=== PATIENT | female | born 1970 | race Caucasian/White ===

== ENCOUNTER 2017-03-31 10:55 | Outpatient (CLI) | payer OTHER ==
--- NOTE | 2017-03-31 13:42 | MRI Report ---
EXAM: LEFT KNEE MRI WITHOUT CONTRAST EXAM DATE: 03/31/2017 11:49 AM. CLINICAL HISTORY: KNEE PAIN.LEFT. COMPARISON: None. TECHNIQUE: Multiplanar, multisequence T1-weighted and fluid-sensitive sequences of the knee without c ontrast. Other: None. FINDINGS: Cruciate ligaments: Anterior and posterior cruciate ligaments appear intact. Medial meniscus: Intact. No tear is identified. Lateral meniscus: Intact. No tear is identified. Collateral ligaments: The medial and fibular collateral ligaments appear intact. Bones and articular surfaces: Slight degree of cartilage thinning in the medial compartment. Some het erogenous signal within the patellar articular cartilage with minimal surface irregularity. No signif icant cartilage fissuring. No significant articular cartilage defects. Extensor mechanism: The patellar tendon and quadriceps insertion appear intact. Miscellaneous: Small lobulated cyst associated with the popliteus musculotendinous junction approxima tely 0.4 0.4 x 1.8 cm. IMPRESSION: 1. Minimal patellar chondromalacia. 2. The menisci, cruciate and collateral ligaments appear intact. [facility] MUSCULOSKELETAL RADIOLOGY SECTION Referring Provider Line: [phone] SITE ID: [id number]
== END 2017-03-31 10:56 | disposition home or self-care (01) ==
LOC: DI 10:55
PROVIDERS: ATTEND Family Medicine
DX: M22.42 Chondromalacia patellae, left knee (principal)

== ENCOUNTER 2017-11-16 14:15 | Outpatient (CLI) | payer OTHER ==
[2017-11-16 19:12] LABS: BASOPHILS % (AUTO) 0.8 %; EOSINOPHILS # (AUTO) 0.1 10^3/uL (0.0-0.7); EOSINOPHILS % (AUTO) 1.8 %; HGB - HEMOGLOBIN 12.4 g/dL (12.0-16.0); LYMPHOCYTES # (AUTO) 1.5 10^3/uL (1.5-3.5); LYMPHOCYTES % (AUTO) 31.8 %; MEAN CORPUSCULAR HEMOGLOBIN 30.5 pg (27.0-31.0); MEAN CORPUSCULAR VOLUME 92.3 fL (81.0-99.0); MEAN PLATELET VOLUME 8.1 fL (7.9-10.8); MONOCYTES # (AUTO) 0.4 10^3/uL (0.0-1.0); MONOCYTES % (AUTO) 7.9 %; NEUTROPHILS # (AUTO) 2.7 10^3/uL (1.5-6.6); NEUTROPHILS % (AUTO) 57.7 %; PLT - PLATELET COUNT 276 10^3/uL (130-450); RED BLOOD COUNT 4.08 10^6/uL (4.20-5.40); RED CELL DISTRIBUTION WIDTH 12.7 % (12.0-15.0); WHITE BLOOD COUNT 4.7 x10^3/uL (4.8-10.8)
[2017-11-16 19:31] LABS: ALBUMIN 4.4 g/dL (3.2-5.5); ALBUMIN/GLOBULIN RATIO 1.8 (1.0-2.2); ALKALINE PHOSPHATASE 45 IU/L (42-121); ALT ALANINE AMINOTRANSFERASE 13 IU/L (10-60); AST ASPARTATE AMINOTRANSFERASE 16 IU/L (10-42); BILIRUBIN,TOTAL 0.2 mg/dL (0.2-1.0); BUN - BLOOD UREA NITROGEN 8 mg/dL (6-20); CALCIUM 8.7 mg/dL (8.5-10.3); CARBON DIOXIDE - CO2 30 mmol/L (21-32); CHLORIDE 103 mmol/L (101-111); CREATININE 0.6 mg/dL (0.4-1.0); GFR - MDRD 107 (>89); GLUCOSE 103 mg/dL (70-100); SODIUM 135 mmol/L (135-145); TOTAL PROTEIN 6.8 g/dL (6.7-8.2)
[2017-11-16 20:05] LABS: CRP - C-REACTIVE PROTEIN < 1.0 mg/dL (0-1.0)
== END 2017-11-16 14:16 | disposition home or self-care (01) ==
LOC: LAB.WCP 14:15
PROVIDERS: ATTEND Physician Assistant Medical
DX: R19.7 Diarrhea, unspecified (principal)
CPT/HCPCS: 36415; 80053; 85025; 85651; 86140

== ENCOUNTER 2018-04-25 08:00 | Outpatient (CLI) | payer OTHER ==
[2018-04-25 12:34] LABS: BASOPHILS % (AUTO) 0.7 %; EOSINOPHILS # (AUTO) 0.1 10^3/uL (0.0-0.7); EOSINOPHILS % (AUTO) 2.5 %; HGB - HEMOGLOBIN 12.3 g/dL (12.0-16.0); LYMPHOCYTES % (AUTO) 41.8 %; MEAN CORPUSCULAR HEMOGLOBIN 31.4 pg (27.0-31.0); MEAN CORPUSCULAR HGB CONC 33.7 g/dL (32.0-36.0); MEAN CORPUSCULAR VOLUME 93.3 fL (81.0-99.0); MEAN PLATELET VOLUME 7.9 fL (7.9-10.8); MONOCYTES # (AUTO) 0.3 10^3/uL (0.0-1.0); MONOCYTES % (AUTO) 7.2 %; NEUTROPHILS # (AUTO) 2.3 10^3/uL (1.5-6.6); NEUTROPHILS % (AUTO) 47.8 %; PLT - PLATELET COUNT 278 10^3/uL (130-450); RED CELL DISTRIBUTION WIDTH 12.9 % (12.0-15.0); WHITE BLOOD COUNT 4.8 x10^3/uL (4.8-10.8)
[2018-04-25 12:47] LABS: ALBUMIN 3.9 g/dL (3.2-5.5); ALBUMIN/GLOBULIN RATIO 1.3 (1.0-2.2); ALKALINE PHOSPHATASE 47 IU/L (42-121); ALT ALANINE AMINOTRANSFERASE 15 IU/L (10-60); AST ASPARTATE AMINOTRANSFERASE 22 IU/L (10-42); BILIRUBIN,TOTAL 0.5 mg/dL (0.2-1.0); BUN - BLOOD UREA NITROGEN 10 mg/dL (6-20); CARBON DIOXIDE - CO2 25 mmol/L (21-32); CHLORIDE 105 mmol/L (101-111); CHOL/HDL RATIO 2.3 (<4.4); CHOLESTEROL 186 mg/dL; CREATININE 0.7 mg/dL (0.4-1.0); GFR - MDRD 90 (>89); GLUCOSE 89 mg/dL (70-100); HDL CHOLESTEROL 80 mg/dL; LDL CHOLESTEROL,CALCULATED 88 mg/dL; LDL/HDL RATIO 1.1 (<4.4); SODIUM 138 mmol/L (135-145); VLDL CHOLESTEROL 18 mg/dL
== END 2018-04-25 08:01 ==
LOC: LAB.WCP 08:00
PROVIDERS: ATTEND Physician Assistant Medical
DX: Z00.00 Encounter for general adult medical examination without abnormal findings (principal)
CPT/HCPCS: 36415; 80053; 80061; 83721; 84443; 85025

== ENCOUNTER 2018-04-27 13:41 | Outpatient (CLI) | payer OTHER ==
--- NOTE | 2018-04-30 13:17 | Mammography Report ---
Procedure Date: 04/27/2018 Accession Number: [id number] / [id number] Procedure: MGN - Screening Mammo Dig Bilat CPT Code: FULL RESULT: EXAM: Screening Mammo Dig Bilat DATE: 04/27/2018 2:09 PM CLINICAL HISTORY: 47-year-old with history of benign biopsy for screening TECHNIQUE: Bilateral CC and MLO views were obtained. COMPARISON: 07/07/2016, 06/24/2015, 02/21/2014, 01/22/2013, 10/21/2011 FINDINGS: The breasts demonstrate heterogeneously dense fibroglandular parenchyma bilaterally. Punctate, typically benign calcifications are present. No suspicious masses, clustered microcalcifications, or regions of architectural distortion are identified. IMPRESSION: Benign findings RECOMMENDATION: Routine annual screening unless otherwise clinically indicated. BIRADS CATEGORY 2: Benign findings STANDARD QUALIFYING STATEMENTS: 1. This examination was reviewed with the aid of Computer-Aided Detection (CAD). 2. A negative or benign imaging report should not delay biopsy if clinically suspicious findings are present. Consider surgical consultation if warrented. More than 5% of cancers are not identified by imaging. 3. Dense breasts may obscure an underlying neoplasm.
== END 2018-04-27 13:42 | disposition home or self-care (01) ==
LOC: DI.N 13:41
PROVIDERS: ATTEND Physician Assistant Medical
DX: Z12.31 Encounter for screening mammogram for malignant neoplasm of breast (principal)
CPT/HCPCS: 77067

== ENCOUNTER 2019-08-20 10:07 | Outpatient (CLI) | payer OTHER ==
[2019-08-20 13:08] LABS: BASOPHILS # (AUTO) 0.1 10^3/uL (0.0-0.1); BASOPHILS % (AUTO) 1.2 %; EOSINOPHILS # (AUTO) 0.1 10^3/uL (0.0-0.7); EOSINOPHILS % (AUTO) 1.8 %; HGB - HEMOGLOBIN 12.2 g/dL (12.0-16.0); LYMPHOCYTES # (AUTO) 1.8 10^3/uL (1.5-3.5); LYMPHOCYTES % (AUTO) 36.2 %; MEAN CORPUSCULAR HGB CONC 31.4 g/dL (32.0-36.0); MEAN CORPUSCULAR VOLUME 95.6 fL (81.0-99.0); MONOCYTES # (AUTO) 0.4 10^3/uL (0.0-1.0); MONOCYTES % (AUTO) 8.5 %; NEUTROPHILS # (AUTO) 2.6 10^3/uL (1.5-6.6); NEUTROPHILS % (AUTO) 51.9 %; PLT - PLATELET COUNT 309 10^3/uL (130-450); RED BLOOD COUNT 4.06 10^6/uL (4.20-5.40); RED CELL DISTRIBUTION WIDTH 12.3 % (12.0-15.0)
[2019-08-20 13:31] LABS: CALCIUM 9.1 mg/dL (8.5-10.3); CREATININE 0.7 mg/dL (0.4-1.0)
[2019-08-20 14:00] LABS: FOLATE 9.08 ng/mL (5.90 - >24.8)
== END 2019-08-20 23:59 | disposition home or self-care (01) ==
LOC: LAB.WCP 10:07
PROVIDERS: ATTEND Physician Assistant Medical
DX: R26.9 Unspecified abnormalities of gait and mobility (principal)
CPT/HCPCS: 36415; 80048; 82607; 82746; 84443; 85025

== ENCOUNTER 2019-08-31 12:13 | Outpatient (CLI) | payer OTHER ==
[~2019-08-31 12:13] MED LIST: GADOBUTROL 10 MMOL/10 ML VIAL ONE
[2019-08-31] MEDS ORDERED: GADOBUTROL 10 MMOL/10 ML VIAL IVP ONE (13:06)
--- NOTE | 2019-08-31 15:50 | MRI Report ---
Reason: SLURRED SPEECH, GAIT DISTURBANCE Procedure Date: 08/31/2019 Accession Number: [id number] / [id number] Procedure: MRI - Brain W/WO CPT Code: FULL RESULT: EXAM: MRI BRAIN WITH AND WITHOUT CONTRAST COMPARISON: None. CLINICAL HISTORY: Slurred speech, gait disturbance. GFR: Normal. : No. Priors: Nothing relevant. IV CONTRAST: Gadavist 10 mL. TECHNIQUE: Multiplanar multisequence imaging is performed through the head with and without gadolinium based contrast . FINDINGS: Diffusion-weighted imaging shows no acute infarct. Gradient sequence shows no evident prior parenchymal hemorrhage. T2 FLAIR imaging shows minimal white matter T2 prolongation, no masses. Ventricular size is normal. T2 spin-echo imaging shows no posterior fossa masses. No prior posterior fossa infarcts. No abnormal FLAIR signal in the vertebral arteries. No abnormal elevated T1 signal in the brain parenchyma. No developmental anomalies. Postcontrast T1 three-dimensional spoiled gradient sequence shows no evident abnormal parenchymal enhancement. Limited evaluation of the dural venous sinuses and deep venous structures is unremarkable. Visualized orbits, paranasal sinuses and mastoids are unremarkable. No calvarial signal abnormality. IMPRESSION: No acute infarct, mass, or other discrete acute parenchymal process identified. Brain is relatively normal.
== END 2019-08-31 12:14 | disposition home or self-care (01) ==
LOC: DI 12:13
PROVIDERS: ATTEND Physician Assistant Medical
DX: R47.81 Slurred speech (principal); R26.9 Unspecified abnormalities of gait and mobility
CPT/HCPCS: 70553; A9585

== ENCOUNTER 2020-07-27 08:00 | Outpatient (CLI) | payer OTHER ==
--- NOTE | 2020-07-27 16:08 | XRAY Report ---
PROCEDURE: Hip BILAT INDICATIONS: TROCHANTERIC BURSITIS TECHNIQUE: Single view of the pelvis and lateral views of each hip acquired. COMPARISON: None. FINDINGS: Bones: No fractures or dislocations. There is mild bony prominence of the femoral head-neck junctio n bilaterally. There is minimal axial joint space narrowing in the hips bilaterally. No suspicious [place] lesions. The visualized pelvic ring appears intact. Soft tissues: No suspicious soft tissue calcifications or masses. IMPRESSION: 1. Mild bony prominence of the femoral head-neck junction bilaterally. 2. Minimal axial joint space narrowing bilaterally. Reviewed by: Jaron Chaidez MD on 07/27/2020 4:06 PM PDT Approved by: Jaron Chaidez MD on 07/27/2020 4:06 PM PDT Station ID: [id number]
== END 2020-07-27 23:59 | disposition home or self-care (01) ==
LOC: DI.WCP 08:00
PROVIDERS: ATTEND Physician Assistant Medical
DX: M70.62 Trochanteric bursitis, left hip (principal); M70.61 Trochanteric bursitis, right hip
CPT/HCPCS: 73521

== ENCOUNTER 2020-08-07 16:39 | Outpatient (CLI) | payer OTHER ==
--- NOTE | 2020-08-10 15:42 | MRI Report ---
PROCEDURE: Lumbar Spine W/O INDICATIONS: LEFT SCIATICA TECHNIQUE: Noncontrast sagittal T1 spin echo and T2 fast echo, sagittal STIR, axial T1 and T2 fast spin echo thr ough the lumbar spine. In cases with scoliosis, additional coronal T2 fast spin echo may be performe d. COMPARISON: None. FINDINGS: Image quality: Excellent. Alignment and Curvature: There is normal bony alignment. Bone Marrow: Marrow is of normal overall signal. No acute vertebral body compression fractures. Spinal Cord: Conus medullaris terminates at the level. Visualized cord demonstrates normal sign al and size. Paraspinous Soft Tissues: No paravertebral masses. T12-L1: Normal in appearance. L1-L2: Normal in appearance. L2-L3: Normal in appearance. L3-L4: Normal in appearance except for mild facet osteoarthritis. L4-L5: Normal in appearance except for mild to moderate facet osteoarthritis but without spinal or foraminal stenosis.. L5-S1: There is a minimal degree of disc desiccation and disc height reduction, and moderate facet osteoarthritis without significant foraminal stenosis. No spinal stenosis found.. IMPRESSION: A disc herniation is not seen. The degenerative changes along the lumbosacral spine are quite mild, comprised of a slight degree low lumbosacral spine degenerative disc height reduction and desiccation at L5-S1, and mild but progressively more prominent facet osteoarthritis from L3 through S1. The facet hyperostosis present at L5-S1 produces a slight degree of narrowing of the neural fora men bilaterally symmetric, without nerve root impingement. A definite source of left-sided asymmetric sciatica is not found. Reviewed by: Dwight Mcqueen MD on 08/10/2020 3:41 PM PDT Approved by: Dwight Mcqueen MD on 08/10/2020 3:41 PM PDT Station ID: [id number]
== END 2020-08-07 16:40 | disposition home or self-care (01) ==
LOC: DI 16:39
PROVIDERS: ATTEND Physician Assistant Medical
DX: M47.817 Spondylosis without myelopathy or radiculopathy, lumbosacral region (principal); M54.32 Sciatica, left side
CPT/HCPCS: 72148

== ENCOUNTER 2020-10-09 07:00 | Outpatient (CLI) | payer OTHER | END 2020-10-09 23:59 | disposition home or self-care (01) | LOC: COV 07:00 | PROVIDERS: ATTEND Family Medicine | DX: Z20.828 Contact with and (suspected) exposure to other viral communicable diseases (principal) ==

== ENCOUNTER 2021-06-23 08:00 | Outpatient (CLI) | payer OTHER ==
[2021-06-23 11:43] LABS: BASOPHILS # (AUTO) 0.1 10^3/uL (0.0-0.1); EOSINOPHILS # (AUTO) 0.1 10^3/uL (0.0-0.7); EOSINOPHILS % (AUTO) 2.4 %; HGB - HEMOGLOBIN 12.1 g/dL (12.0-16.0); LYMPHOCYTES % (AUTO) 41.2 %; MEAN CORPUSCULAR HEMOGLOBIN 30.6 pg (27.0-31.0); MEAN CORPUSCULAR HGB CONC 31.8 g/dL (32.0-36.0); MEAN PLATELET VOLUME 9.9 fL (7.9-10.8); MONOCYTES # (AUTO) 0.4 10^3/uL (0.0-1.0); MONOCYTES % (AUTO) 7.7 %; NEUTROPHILS # (AUTO) 2.3 10^3/uL (1.5-6.6); NEUTROPHILS % (AUTO) 47.5 %; PLT - PLATELET COUNT 293 10^3/uL (130-450); RED BLOOD COUNT 3.96 10^6/uL (4.20-5.40); RED CELL DISTRIBUTION WIDTH 11.7 % (12.0-15.0); WHITE BLOOD COUNT 4.9 x10^3/uL (4.8-10.8)
[2021-06-23 12:39] LABS: THYROID STIMULATING HORMONE 2.44 uIU/mL (0.34-5.60)
[2021-06-23 12:43] LABS: ALBUMIN 4.6 g/dL (3.2-5.5); ALBUMIN/GLOBULIN RATIO 1.8 (1.0-2.2); ALKALINE PHOSPHATASE 63 IU/L (42-121); ALT ALANINE AMINOTRANSFERASE 13 IU/L (10-60); AST ASPARTATE AMINOTRANSFERASE 17 IU/L (10-42); BILIRUBIN,TOTAL 0.6 mg/dL (0.2-1.0); BUN - BLOOD UREA NITROGEN 9 mg/dL (6-20); CALCIUM 9.4 mg/dL (8.5-10.3); CARBON DIOXIDE - CO2 29 mmol/L (21-32); CHLORIDE 104 mmol/L (101-111); CHOLESTEROL 257 mg/dL; CREATININE 0.7 mg/dL (0.4-1.0); GFR - MDRD 89 (>89); GLUCOSE 90 mg/dL (70-100); HDL CHOLESTEROL 85 mg/dL; LDL CHOLESTEROL,CALCULATED 155 mg/dL; LDL/HDL RATIO 1.8 (<4.4); POTASSIUM 4.1 mmol/L (3.5-5.0); SODIUM 142 mmol/L (135-145); TOTAL PROTEIN 7.2 g/dL (6.7-8.2); TRIGLYCERIDES 84 mg/dL; VLDL CHOLESTEROL 17 mg/dL
== END 2021-06-23 23:59 | disposition home or self-care (01) ==
LOC: LAB.WCP 08:00
PROVIDERS: ATTEND Physician Assistant Medical
DX: Z00.00 Encounter for general adult medical examination without abnormal findings (principal); E78.5 Hyperlipidemia, unspecified; E61.1 Iron deficiency
CPT/HCPCS: 36415; 80053; 80061; 83721; 84443; 85025

== ENCOUNTER 2022-08-08 11:11 | Outpatient (CLI) | payer OTHER ==
[2022-08-08 18:27] LABS: BASOPHILS # (AUTO) 0.1 10^3/uL (0.0-0.1); BASOPHILS % (AUTO) 0.8 %; EOSINOPHILS # (AUTO) 0.1 10^3/uL (0.0-0.7); EOSINOPHILS % (AUTO) 0.9 %; HCT - HEMATOCRIT 40.1 % (37.0-47.0); HGB - HEMOGLOBIN 12.8 g/dL (12.0-16.0); LYMPHOCYTES # (AUTO) 2.1 10^3/uL (1.5-3.5); LYMPHOCYTES % (AUTO) 28.7 %; MEAN CORPUSCULAR HEMOGLOBIN 30.7 pg (27.0-31.0); MEAN CORPUSCULAR HGB CONC 31.9 g/dL (32.0-36.0); MEAN CORPUSCULAR VOLUME 96.2 fL (81.0-99.0); MEAN PLATELET VOLUME 9.8 fL (7.9-10.8); MONOCYTES # (AUTO) 0.6 10^3/uL (0.0-1.0); MONOCYTES % (AUTO) 7.4 %; NEUTROPHILS # (AUTO) 4.6 10^3/uL (1.5-6.6); NEUTROPHILS % (AUTO) 61.8 %; PLT - PLATELET COUNT 332 10^3/uL (130-450); RED BLOOD COUNT 4.17 10^6/uL (4.20-5.40); RED CELL DISTRIBUTION WIDTH 12.9 % (12.0-15.0); WHITE BLOOD COUNT 7.4 x10^3/uL (4.8-10.8)
[2022-08-08 18:30] LABS: THYROID STIMULATING HORMONE 1.74 uIU/mL (0.34-5.60)
[2022-08-08 18:45] LABS: ALBUMIN 4.3 g/dL (3.2-5.5); ALBUMIN/GLOBULIN RATIO 1.5 (1.0-2.2); ALKALINE PHOSPHATASE 53 IU/L (42-121); ALT ALANINE AMINOTRANSFERASE 18 IU/L (10-60); AST ASPARTATE AMINOTRANSFERASE 19 IU/L (10-42); BILIRUBIN,TOTAL 0.5 mg/dL (0.2-1.0); BUN - BLOOD UREA NITROGEN 13 mg/dL (6-20); CALCIUM 9.3 mg/dL (8.5-10.3); CARBON DIOXIDE - CO2 29 mmol/L (21-32); CHLORIDE 101 mmol/L (101-111); CHOL/HDL RATIO 2.8 (<4.4); CHOLESTEROL 262 mg/dL; CREATININE 0.8 mg/dL (0.4-1.0); GFR - MDRD 76 (>89); GLUCOSE 89 mg/dL (70-100); HDL CHOLESTEROL 94 mg/dL; LDL CHOLESTEROL,CALCULATED 156 mg/dL; LDL/HDL RATIO 1.7 (<4.4); POTASSIUM 4.2 mmol/L (3.5-5.0); SODIUM 138 mmol/L (135-145); TOTAL PROTEIN 7.1 g/dL (6.7-8.2); TRIGLYCERIDES 61 mg/dL; VLDL CHOLESTEROL 12 mg/dL
== END 2022-08-08 11:12 | disposition home or self-care (01) ==
LOC: LAB.N 11:11
PROVIDERS: ATTEND Physician Assistant Medical
DX: Z00.00 Encounter for general adult medical examination without abnormal findings (principal); E78.5 Hyperlipidemia, unspecified
CPT/HCPCS: 36415; 80053; 80061; 83721; 84443; 85025

== ENCOUNTER 2022-10-13 06:27 | Day surgery (SDC) | payer OTHER ==
[2022-10-13] MEDS ORDERED: LACTATED RINGERS 1,000 ML IV ONE (06:33)
[2022-10-13] MEDS ORDERED: ONDANSETRON 4 MG/2 ML VIAL ONE (06:53)
[2022-10-13] MEDS ORDERED: PROPOFOL 500 MG/50 ML 500 MG/50 ML VIAL ONE (07:03)
--- NOTE | 2022-10-13 07:06 | ANESTHESIA ---
Pre-Anesthesia VS, & Labs - Diagnosis screening colonoscopy - Procedure colonoscopy Vital Signs: Temp Pulse Resp BP Pulse Ox O2 Flow Rate 36 C L 80 16 146/92 H 97 10/13/22 06:38 10/13/22 06:38 10/13/22 06:38 10/13/22 06:38 10/13/22 06:38 Height: 5 ft 2 in Weight (kg): 58 kg Body Mass Index: 23.3 BMI Classification: Normal - NPO >8 hours - Is Patient ?: Yes Home Medications and Allergies Home Medications: Ambulatory Orders PARoxetine [Paxil] 10 mg PO DAILY 10/12/22 PARoxetine [Paxil] 10 mg PO DAILY 10/12/22 Anes History & Medical History - Anesthetic History Anesthesia Complications: reports: No previous complications - Medical History Cardiovascular: reports: None Pulmonary: reports: None Gastrointestinal: reports: None Urinary: reports: None Musculoskeletal: reports: None Endocrine/Autoimmune: reports: None Skin: reports: None - Surgical History General: reports: Colonoscopy Exam General: Alert, Oriented x3 Dental: WNL Neck Mobility: Normal Mallampati classification: I Thyromental Distance: greater than 6 cm Respiratory: Lungs clear Cardiovascular: Regular rate Plan Anesthesia Type: Total IV Consent for Procedure(s) Verified and Reviewed: Yes Code Status: Attempt Resuscitation ASA classification: 2-Mild systemic disease Is this case an emergency?: No
[2022-10-13] MEDS ORDERED: ONDANSETRON 4 MG/2 ML VIAL IVP PRN (07:07)
[2022-10-13] MEDS ORDERED: LIDOCAINE-MPF 2% 5 ML VIAL ONE (07:28)
[2022-10-13] MEDS ORDERED: KETOROLAC 30 MG/ML VIAL ONE (07:29)
[2022-10-13] MEDS ORDERED: LACTATED RINGERS 500 ML IV ONE (08:15)
[2022-10-13 08:47] VITALS: BP 109/68
--- NOTE | 2022-10-13 10:34 | ANESTHESIA POST OP EVALUATION ---
Anesthesia Post Eval - Post Anesthesia Eval Vitals: Last Vital Signs Temp 36.2 C L 10/13/22 08:47 Pulse 68 10/13/22 08:47 Resp 16 10/13/22 08:47 BP 109/68 10/13/22 08:47 Pulse Ox 98 10/13/22 08:47 O2 Flow Rate CV Function Including HR & BP: Stable Pain Control: Satisfactory Nausea & Vomiting: Negative Mental Status: Baseline Respiratory Status: Airway Patent Hydration Status: Satisfactory Anesthesia Complications: None
== END 2022-10-13 06:28 | disposition home or self-care (01) ==
LOC: SDS 06:27
PROVIDERS: ATTEND Surgery
DX: Z12.11 Encounter for screening for malignant neoplasm of colon (principal)
CPT/HCPCS: 45378; J7120

== ENCOUNTER 2023-07-13 14:10 | Outpatient (CLI) | payer OTHER ==
--- NOTE | 2023-07-13 14:53 | Sleep Patient Instructions ---
Sleep Center Visit Summary - Patient Visit Information Reason for Visit: Initial consult for evaluation of sleep disordered breathing and other sleep issues. - Patient Instructions Instructions Attached: Sleep Study Home Monitor, Sleep Clinic Visit, Sleep Study Additional Instructions: You will be completing a sleep study, either an in-lab polysomnography (PSG) or home sleep study (HST). You will follow-up in the sleep care office after the sleep study is completed to hear the results and talk about therapy, if needed. You will be called by our office staff to schedule this appointment, but you may contact us with any questions. - Clinic Information Contact: [facility] [address] [place] [address] [email or web address] T: [phone]
--- NOTE | 2023-07-13 14:58 | SLEEP CARE CONSULTATION ---
Information from patient questionnaire entered by Carmen Zavala. I have reviewed and concur with the information entered by Carmen Zavala. This document represents the service I personally performed and the decisions made by me, Shilpi Good ARNP. History of Present Illness Service Date and Time: 07/13/2023 1410 Reason for Visit: New patient Chief Complaint: reports: Insomnia, Unrefreshed sleep, Snoring, Excessive daytime sleepiness, Fatigue, Frequent awakenings at night Date of Onset: A YR Usual bedtime: 10PM Time it takes to fall asleep: 2HRS Snores at night: Yes Observed to quit breathing while asleep: No Sleeps alone due to snoring: No Number of times waking at night: 1-2 Reasons for waking at night: reports: Bathroom, Other (UNKNOWN). denies: Choking, Snoring, Gasping for air Toss, Turn, or Twitch while sleeping: Yes Recalls having dreams: Yes Usually gets out of bed at: 6AM; little later on weekends, 0800 Feels refreshed in the morning: No Morning headache: Yes (1 time a month) Sleepy or fatigued during the day: Yes Ever fallen asleep while driving: No Takes day naps: No Prior sleep studies: No Additional HPI information: I had the pleasure of seeing RIVER MCQUEEN today regarding the possibility of her having a sleep disorder. Her current complaints are daytime sleepiness, fatigue, frequent night awakenings, insomnia, snoring and unrefreshed sleep. She feels that it takes about 2 hours to fall asleep. She tosses and turns all night and she will wake up 1-2 times between 1 and 3 in the morning. This to adjust blankets on and off depending upon her temperature/hot flashes. This has been going on for last year since entering menopause. Her has told her she snores but no pauses in breathing. She wakes up with a dry mouth sometimes. She does not wake up feeling rested and experienced daytime sleepiness. She does not normally take naps and denies drowsy driving. 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 Patient is and lives in [place]. Have you smoked in the past 12 months: No Alcohol use: Yes Alcohol amount and frequency: RARLEY 1 GLASS PER WEEK Caffeine use: Yes Caffeine amount and frequency: RARLEY 1 CAN SODA A MONTH 1 CUP COFFEE PER DAY Family History Family history of sleep disordered breathing: Yes Family Hx Sleep Apnea: Mother: Snoring, Father: Snoring Allergies and Home Medications Known drug allergies: Yes ( LISTED ) Drug allergies reviewed: Yes Home medication list reviewed: Yes Allergy and home medication list: Home Medications Medication Instructions Recorded Confirmed Last Taken Type PARoxetine [Paxil] 10 mg PO DAILY 10/12/22 07/13/23 10/12/22 History Cetirizine HCl [Allergy Relief] See Rx Instructions .ROUTE .COMPLEX 07/13/23 07/13/23 Unknown History Cholecalciferol (Vitamin D3) See Rx Instructions .ROUTE .COMPLEX 07/13/23 07/13/23 Unknown History [Vitamin D3] Escitalopram Oxalate See Rx Instructions .ROUTE .COMPLEX 07/13/23 07/13/23 Unknown History Review of Systems Weight gain over past 5 years: 15 Cardiovascular: denies: high blood pressure Respiratory: denies: shortness of breath Gastrointestinal: denies: heartburn, difficulty swallowing Neurological: denies: headaches, head trauma Psychiatric: denies: anxiety, depression Ear/Nose/Throat: denies: tonsillectomy Endocrine: reports: sluggishness Musculoskeletal: reports: joint pain Immunologic: reports: allergies to food or environment (adhesive tape and shellfish) Physical Exam Vital signs obtained and entered by: CARMEN Izaguirre MA Blood Pressure: 128/72 (LEFT ARM) Cuff size: regular Heart Rate: 72 O2 Saturation: 98 Height: 5 ft 2 in Weight: 134 lb 6.4 oz Body Mass Index: 24.5 BMI Classification: Normal Neck circumference: 13.25 Mouth and throat: narrow oropharynx Soft palate: long Hard palate: normal Uvula: normal Uvula visualization: 25% Mallampati Class III Tongue: enlarged in size with teeth matso on lateral edges Tonsils: small Neck: normal w/o lymphadenopathy or thyromegaly Heart: regular rate and rhythm Lungs: clear bilaterally Impression and Plan 1. Suspected Obstructive Sleep Apnea-Hypopnea Syndrome, as suggested by a history of irregular snoring, frequent awakening during the night, unrefreshed sleep, and excessive daytime sleepiness. Narrow oropharynx and obesity are common predisposing factors for obstructive sleep apnea-hypopnea syndrome. I recommend proceeding to polysomnography to confirm the diagnosis and to assess severity. If the patient has significant sleep disordered breathing, a manual CPAP titration study will also be performed to find the optimal treatment pressure. I informed the patient of what the sleep studies involve and after some discussion, obtained agreement to proceed. The pathophysiology of obstructive sleep apnea-hypopnea syndrome was discussed with the patient and health risks of cardiovascular and cerebrovascular disease if not treated. Risks of drowsy driving discussed in detail and patient advised to avoid long distance driving and to candy puller at the first sign of drowsiness. Patient agreed to plan. * Schedule polysomnography. * Avoid long distance driving or driving when feeling sleepy. * Avoid alcohol, sedative and muscle relaxant around bedtime. * Attempt to lose weight. * Review instructions provided by trained office staff on how to prepare for the sleep study. * Return for follow-up after sleep study completed. Counseling Topics: Weight loss health impact Visit Type: In Office Time Spent with Patient (minutes): 31 Provider Statement: I spent 100% of the Face to Face Visit with the patient with greater than 50% spent counseling the patient and coordination of care.
[2023-07-13 15:48] VITALS: BP 128/72; O2SAT 98
== END 2023-07-13 14:11 | disposition home or self-care (01) ==
LOC: SC 14:10
PROVIDERS: ATTEND Nurse Practitioner Family
DX: G47.10 Hypersomnia, unspecified (principal); R53.83 Other fatigue; G47.8 Other sleep disorders; R06.83 Snoring
CPT/HCPCS: 99203; 99212

== ENCOUNTER 2023-07-13 15:05 | Outpatient (CLI) | payer OTHER ==
[2023-07-13 17:51] LABS: CRP - C-REACTIVE PROTEIN 0.5 mg/dL (<0.5); URIC ACID 4.1 mg/dL (2.3-6.6)
[2023-07-13 18:30] LABS: RHEUMATOID FACTOR NEGATIVE (Negative)
[2023-07-14 20:08] LABS: ANTI-DNA (DS) AB QN 1 IU/mL (0-9)
[2023-07-15 15:08] LABS: ANTINUCLEAR ANTIBODIES IFA Negative (.)
== END 2023-07-13 15:06 | disposition home or self-care (01) ==
LOC: LAB.N 15:05
PROVIDERS: ATTEND Physician Assistant Medical
DX: M25.50 Pain in unspecified joint (principal)
CPT/HCPCS: 36415; 84550; 85651; 86038; 86140; 86225; 86430

== ENCOUNTER 2023-08-28 19:34 | Outpatient (CLI) | payer OTHER | END 2023-08-28 19:35 | disposition home or self-care (01) | LOC: SC 19:34 | PROVIDERS: ATTEND Nurse Practitioner Family | DX: G47.33 Obstructive sleep apnea (adult) (pediatric) (principal); G47.61 Periodic limb movement disorder | CPT/HCPCS: 95810 ==

== ENCOUNTER 2023-10-04 11:21 | Outpatient (CLI) | payer OTHER ==
--- NOTE | 2023-10-04 12:09 | Sleep Patient Instructions ---
Sleep Center Visit Summary - Patient Visit Information Reason for Visit: Sleep study followup - Patient Instructions Instructions Attached: CPAP Additional Instructions: You are being started on CPAP therapy with pressure setting at 4-15 cmH2O. You w ill need to call the sleep care office to set up your follow up once you have your APAP machine and we will schedule a visit to check compliance and response to therapy at that time. You may call the office with any concerns about pressure feeling too low or too much for adjustment, if needed. You should contact DME supplier for any questions or concerns about mask or equipment. Please call office to schedule a follow up appointment in the sleep care office one month after obtaining new device. - Clinic Information Contact: [facility] [address] [place] [address] [email or web address] T: [phone]
--- NOTE | 2023-10-04 12:12 | SLEEP CARE CONSULTATION ---
Information from patient questionnaire entered by Estephania Zavala. I have reviewed and concur with the information entered by Estephania Zavala. This document represents the service I personally performed and the decisions made by me, Shilpi Good ARNP. History of Present Illness Service Date and Time: 10/04/2023 1121 Initial [place] Sleepiness Scale score: 5 (07/13/23) Current [place] Sleepiness Scale score: 5 (10/04/23) Additional HPI information: RIVER MCQUEEN returns for follow up and results of the recently performed polysomnography. The sleep study showed moderate obstructive sleep apnea with an average AHI of 15.9 and nicole oxygen saturation of 77%. She had moderate PLMs that did not contribute to sleep fragmentation. I explained the pathophysiology behind obstructive sleep apnea. We then spent quite a bit of time discussing different treatment options. For mild obstructive sleep apnea, surgery and oral appliance are alternatives to nasal CPAP therapy but in moderate or severe cases, nasal CPAP is the most effective and reliable treatment. I reviewed the impact of weight changes. After some discussion, the patient opted to go with the nasal CPAP therapy. Nasal autoCPAP set at 4-15 cmH20 will be ordered with rationale explained. A manual titration study will be ordered if unable to find optimal pressure with office adjustments. I explained how CPAP machine works and what to expect when using the machine. Using CPAP every night in order to get used to it was emphasized. Patient advised to put CPAP mask on before getting into bed so as not to fall asleep without CPAP. To assist acclimation to CPAP use, it could also be used for a short time during day while reading or watching TV. The patient was instructed to call the CPAP supplier to discuss any mechanical problem that may occur. If the mask given is uncomfortable or is difficult to keep on through the night even with adjustment, contact the CPAP supplier as many will replace with another mask style if notified before 30 days. If snori ng or perceives is not getting enough air or too much air from the machine, notify this office. Patient counseled not drink alcohol less than 4 hours before bedtime as it can increase snoring and apnea. Patient was cautioned about risks of drowsy driving until sleepiness symptoms resolve. Patient denies drowsy driving. Sleep Study - Results Type of Sleep Study: Polysomnography (COMPLETED 08/28/23) Prior sleep studies: No Polysomnography/Home Sleep Study results: IMPRESSION: The quality of the study is good. The patient had normal sleep efficiency. The sleep architecture was abnormal for sleep fragmentation and reduced amount of time spent in REM and slow wave sleep (N3). Respiratory monitoring showed moderate obstructive sleep apnea-hypopnea (AHI = 15.9) associated with frequent arousals, oxyhemoglobin desaturation and moderate hypoxia (nicole oxygen saturation of 77%). Baseline oxygen saturation was normal. The patient slept almost exclusively in supine position (supine AHI = 17.6; non-supine = 0.00). Snore was light in intensity. There was moderate periodic leg movement of sleep not contributing to the sleep fragmentation. Cardiac rhythm was normal sinus rhythm without significant arrhythmia. No abnormal behavior (parasomnia) observed during the night. Allergies and Home Medications Known drug allergies: Yes (as listed) Drug allergies reviewed: Yes Home medication list reviewed: Yes (escitalopram oxalate 5 mg instead of paroxetine) Allergy and home medication list: Allergies adhesive tape Allergy (Verified 10/03/23 13:22) iodine Allergy (Verified 10/03/23 13:22) Review of Systems Review of systems same as previous: Yes (NO CHANGE) Physical Exam Vital signs obtained and entered by: ESTEPHANIA Izaguirre MA Blood Pressure: 114/62 (LEFT ARM) Cuff size: regular Heart Rate: 63 O2 Saturation: 97 Height: 5 ft 2 in Weight: 133 lb Body Mass Index: 24.3 BMI Classification: Normal Impression and Plan 1. Obstructive Sleep Apnea-Hypopnea Syndrome, moderate, with lowest oxygen saturation of 77%. Obviously this is the cause of the patients symptoms of unrefreshed sleep, and excessive daytime sleepiness. As mentioned above, the patient will be started on nasal autoCPAP therapy with pressure set at 4-15 cmH2 O. Compliance guidelines also reviewed. A copy of compliance guidelines will be given for reference at check out. Because the apnea is more severe supine, I instructed to avoid sleeping supine using pillow positioning until able to start CPAP use. 2. Hypoxemia, moderate, with a nicole oxygen saturation of 77% and 6.9 minutes spent under 90%. The baseline oxygen saturation was normal with an average o xygen saturation of 95%. 3. Periodic limb movement, moderate, that did not fragment patients sleep. Periodic limb movement of sleep (PLMS) is characterized by episodes of repetitive limb movements that occur during sleep and usually involve the lower limbs. The etiology is unknown. Sleep hygiene methods can also improve sleep as well as lifestyle changes such as regular exercise. Patient was advised that no treatment is needed at this time. If symptoms increase, then further evaluation is indicated. * Nasal auto CPAP therapy, pressure at 4-15 cm H2O. * Attempt to lose weight. * Avoid alcohol consumption near bedtime. * Avoid supine sleep until using CPAP. * The patient is again cautioned about driving until sleepiness completely resolves. * Return one month after CPAP obtained. I will assess response to therapy and compliance at that time. Counseling Topics: Sleeping position, Weight control Prescriptions: Auto CPAP Visit Type: In Office Time Spent with Patient (minutes): 24 Provider Statement: I spent 100% of the Face to Face Visit with the patient with greater than 50% spent counseling the patient and coordination of care.
[2023-10-04 12:20] VITALS: BP 114/62; O2SAT 97
== END 2023-10-04 11:22 | disposition home or self-care (01) ==
LOC: SC 11:21
PROVIDERS: ATTEND Nurse Practitioner Family
DX: G47.33 Obstructive sleep apnea (adult) (pediatric) (principal); R09.02 Hypoxemia; G47.61 Periodic limb movement disorder
CPT/HCPCS: 99212; 99213

== ENCOUNTER 2023-10-17 11:29 | Outpatient (CLI) | payer OTHER ==
--- NOTE | 2023-10-17 16:47 | XRAY Report ---
PROCEDURE: Foot 2 View BILAT INDICATIONS: JOINT PAIN TECHNIQUE: 2 views of the foot were acquired. COMPARISON: None. FINDINGS: Bones: No fractures or dislocations. No suspicious bony lesions or erosions. . Minimal scattered e ruben IP degenerative narrowing. Small calcaneal spurs, right greater than left. Soft tissues: No suspicious soft tissue calcifications or masses. IMPRESSION: Minimal early degenerative change. Reviewed by: Judy Campbell MD on 10/17/2023 4:46 PM PST Approved by: Judy Campbell MD on 10/17/2023 4:46 PM PST Station ID: [id number]
--- NOTE | 2023-10-17 16:48 | XRAY Report ---
PROCEDURE: Hand 2 View BILAT INDICATIONS: JOINT PAIN TECHNIQUE: 2 views of the hand(s) acquired. COMPARISON: None. FINDINGS: Bones: No fractures or dislocations. No suspicious bony lesions. No distinctive arthritic change. Soft tissues: No suspicious soft tissue calcifications or masses. IMPRESSION: No definitive arthritic change. Reviewed by: Judy Campbell MD on 10/17/2023 4:47 PM [facility] Approved by: Judy Campbell MD on 10/17/2023 4:47 PM [facility] Station ID: [id number]
--- NOTE | 2023-10-17 16:49 | XRAY Report ---
PROCEDURE: Pelvis 1 View INDICATIONS: JOINT PAIN TECHNIQUE: 1 view(s) of the pelvis acquired. COMPARISON: X-ray hip 07/27/2020 FINDINGS: Bones: No fractures or dislocations. No suspicious bony lesions. Soft tissues: Visualized bowel gas pattern is normal. No suspicious soft tissue calcifications. IMPRESSION: No acute bony abnormality. No appreciable arthritic change. Reviewed by: Judy Campbell MD on 10/17/2023 4:48 PM PST Approved by: Judy Campbell MD on 10/17/2023 4:48 PM PST Station ID: [id number]
== END 2023-10-17 11:30 | disposition home or self-care (01) ==
LOC: DI.N 11:29
PROVIDERS: ATTEND Internal Medicine Rheumatology
DX: M19.072 Primary osteoarthritis, left ankle and foot (principal); M19.071 Primary osteoarthritis, right ankle and foot; M25.50 Pain in unspecified joint; R53.83 Other fatigue
CPT/HCPCS: 36415; 80053; 81374; 84443; 85651; 86038; 86140; 86200; 86430

== ENCOUNTER 2023-10-17 15:10 | Outpatient (CLI) | payer OTHER ==
[2023-10-17 18:25] LABS: ALBUMIN 4.5 g/dL (3.2-5.5); ALBUMIN/GLOBULIN RATIO 1.7 (1.0-2.2); ALKALINE PHOSPHATASE 67 IU/L (42-121); ALT ALANINE AMINOTRANSFERASE 13 IU/L (10-60); AST ASPARTATE AMINOTRANSFERASE 15 IU/L (10-42); BILIRUBIN,TOTAL 0.3 mg/dL (0.2-1.0); BUN - BLOOD UREA NITROGEN 10 mg/dL (6-20); CALCIUM 9.8 mg/dL (8.5-10.3); CARBON DIOXIDE - CO2 31 mmol/L (21-32); CHLORIDE 104 mmol/L (101-111); CREATININE 0.8 mg/dL (0.6-1.3); CRP - C-REACTIVE PROTEIN < 0.5 mg/dL (<0.5); GFR - MDRD 75 (>89); GLUCOSE 96 mg/dL (74-104); POTASSIUM 3.8 mmol/L (3.5-4.5); SODIUM 141 mmol/L (135-145); TOTAL PROTEIN 7.2 g/dL (6.4-8.9)
[2023-10-17 18:49] LABS: THYROID STIMULATING HORMONE 2.71 uIU/mL (0.34-5.60)
[2023-10-17 18:50] LABS: RHEUMATOID FACTOR NEGATIVE (Negative)
[2023-10-18 20:07] LABS: CYCLIC CITRULLINATED PEP IGG/A 0 units (0-19)
[2023-10-19 15:08] LABS: ANTINUCLEAR ANTIBODIES IFA Negative (.)
== END 2023-10-17 15:11 | disposition home or self-care (01) ==
LOC: LAB.N 15:10
PROVIDERS: ATTEND Internal Medicine Rheumatology
DX: M25.50 Pain in unspecified joint (principal); R53.83 Other fatigue
CPT/HCPCS: 36415; 80053; 81374; 84443; 85651; 86038; 86140; 86200; 86430

== ENCOUNTER 2023-11-30 14:36 | Outpatient (CLI) | payer OTHER ==
--- NOTE | 2023-11-30 14:01 | SLEEP CARE CONSULTATION ---
Information from patient questionnaire entered by Estephania Zavala. I have reviewed and concur with the information entered by Estephania Zavala. This document represents the service I personally performed and the decisions made by me, Shilpi Good ARNP. History of Present Illness Service Date and Time: 11/30/2023 1340 Previous diagnosis: Moderate, Obstructive Sleep Apnea-Hypopnea Syndrome AHI: 15.9 (in 08/2023) Reason for follow up: first compliance Equipment type: CPAP (RESMED Airsense 11, s/u 10/2023, NEED MACHINE) Equipment obtained from: [employer] (getting supplies) Mask style: Nasal Backup mask available: No (will keep old mask when replaced) Last cushion change: not yet Prior sleep studies: No Type of Sleep Study: Polysomnography (COMPLETED 08/28/23) HPI additional information: RIVER MCQUEEN was diagnosed to have moderate, AHI 15.9, obstructive sleep apnea-hypopnea syndrome and returned today for CPAP therapy first compliance follow-up. Sleep Study - Results Type of Sleep Study: Polysomnography (COMPLETED 08/28/23) Prior sleep studies: No CPAP Compliance Data - Data Reviewed with Patient Average duration of nightly device use: 6.1 hours Compliance rate %: 90 Current pressure setting (cmH2O): 4-15 (avg 7.6) Humidity settin Average residual AHI: 6.6 Central apnea: 4.2 Obstructive apnea: 1.6 Average large leak: 14 L/min Compliance data discussion: We were able to get data from machine but not a download from the web. Subjective Patient concerns: reports: mask discomfort (hose getting tangled in and straps leaving indents), air blowing in eyes. denies: aerophagia, mask leak noise, condensation in mask/hose, nasal congestion, dry mouth, nose, throat, epistaxis Observed to snore while using device: No Current pressure setting perceived as: comfortable (a little low in the beginning) On therapy, patient: reports: other (not notice improvement and has been a little more tired). denies: drowsiness while driving Initial Pony Sleepiness Scale score: 5 (07/13/23) Current Pony Sleepiness Scale score: 8 (11/30/23) Allergies and Home Medications Known drug allergies: Yes (as listed) Allergy and home medication list: Allergies adhesive tape Allergy (Verified 11/28/23 14:49) iodine Allergy (Verified 11/28/23 14:49) Review of Systems Review of systems same as previous: Yes (NO CHANGE) Physical Exam Vital signs obtained and entered by: ESTEPHANIA Izaguirre MA Blood Pressure: 132/80 (RIGHT ARM) Cuff size: regular Heart Rate: 63 O2 Saturation: 98 Height: 5 ft 2 in Weight: 134 lb 6.4 oz Body Mass Index: 24.5 BMI Classification: Normal Impression and Plan 1. Obstructive Sleep Apnea-Hypopnea Syndrome, moderate, with good treatment compliance and good apnea control. On CPAP therapy, the patient has better sleep quality and is more rested overall. She has been having some issues with getting tangled in the hose and the hose falling off the bed and pulling on her mask causes leaks and waking her up. I fit her to a [employer] DreamWisp, small cushion with a good fit. She will try this one at home and change to this mask with her DME, [employer], if all goes well. The patients pressure will be changed to autoCPAP 6-9 cmH20 to reflect pressure being used. Patient advised to contact me if pressure change is uncomfortable so that it can be adjusted. Goals for apnea control discussed. Patient's apnea severity and rationale for treatment to reduce apnea, improve sleep quality and reduce cardiovascular and cerebrovascular events was reviewed. * Change auto CPAP pressure to 6-9 cmH2O * Notify me if snoring with mask or feeling that the pressure is too much or too little * Call this office if any problems using CPAP * Return for follow up in 1-2 months, or sooner if concerns arise Adjust device pressure to (cmH2O): 6-9 Mask provided: Yes Counseling Topics: Spare mask Follow up with Sleep Care in: 1-2 months Visit Type: In Office Time Spent with Patient (minutes): 29 Provider Statement: I spent 100% of the Face to Face Visit with the patient with greater than 50% spent counseling the patient and coordination of care.
--- NOTE | 2023-11-30 14:02 | Sleep Patient Instructions ---
Sleep Center Visit Summary - Patient Visit Information Reason for Visit: First compliance visit for PAP therapy - Patient Instructions Additional Instructions: You were here for follow up of CPAP therapy. You will be continued on CPAP therapy with pressure at 6-9 cmH2O. Please let us know if the pressure change is uncomfortable and we can make further adjustments of the pressure. You should follow up with sleep care in 1-2 months. You may contact us sooner for any questions or concerns. - Clinic Information Contact: [facility] [address] [place] [address] [email or web address] T: [phone]
[2023-11-30 14:04] VITALS: BP 132/80; O2SAT 98
== END 2023-11-30 14:37 | disposition home or self-care (01) ==
LOC: SC 14:36
PROVIDERS: ATTEND Nurse Practitioner Family
DX: G47.33 Obstructive sleep apnea (adult) (pediatric) (principal)
CPT/HCPCS: 99212; 99213

== ENCOUNTER 2024-01-02 15:23 | Outpatient (CLI) | payer OTHER ==
--- NOTE | 2024-01-02 19:29 | Ultrasound Report ---
PROCEDURE: Soft Tissue Head or Neck INDICATIONS: THYROMEGALY TECHNIQUE: Real-time scanning was performed of the thyroid gland, with image documentation. COMPARISON: None FINDINGS: Right: Thyroid lobe measures 3.9 x 1.6 x 1.3 cm, and is homogeneous in echotexture. Left: Thyroid lobe measures 3.5 x 1.4 x 1.4 cm, and is homogenous in echotexture. Isthmus: 0.2 cm thick. No significant thyroid nodules. No enlarged lymph nodes. Parathyroid glands are not seen. IMPRESSION: Thyroid gland is within normal limits in size. No significant thyroid nodules. Reviewed by: Mike Jackson MD on 01/02/2024 7:28 PM PST Approved by: Mike Jackson MD on 01/02/2024 7:28 PM PST Station ID: [id number]
== END 2024-01-02 15:24 | disposition home or self-care (01) ==
LOC: DI 15:23
PROVIDERS: ATTEND Physician Assistant Medical
DX: E01.0 Iodine-deficiency related diffuse (endemic) goiter (principal)

== ENCOUNTER 2024-01-04 10:30 | Outpatient (CLI) | payer OTHER ==
--- NOTE | 2024-01-04 11:03 | Sleep Patient Instructions ---
Sleep Center Visit Summary - Patient Visit Information Reason for Visit: 1 month followup - Patient Instructions Additional Instructions: You were here for follow up of CPAP therapy. You will be continued on CPAP therapy with pressure at 5-7 cmH2O. Please let us know if the pressure change is uncomfortable and we can make further adjustments of the pressure. I have added a mask refitting to your prescription to try the other nasal mask. You should follow up with sleep care in 1-2 months. You may contact us sooner for any questions or concerns. - Clinic Information Contact: [facility] [address] [place] [id number] [email or web address] T: [phone]
--- NOTE | 2024-01-04 11:08 | SLEEP CARE CONSULTATION ---
Information from patient questionnaire entered by Estephania Zavala. I have reviewed and concur with the information entered by Estephania Zavala. This document represents the service I personally performed and the decisions made by , Shilpi Good ARNP. History of Present Illness Service Date and Time: 01/04/2024 1030 Previous diagnosis: Moderate, Obstructive Sleep Apnea-Hypopnea Syndrome AHI: 15.9 (in 08/2023) Reason for follow up: one month (F/U) Equipment type: CPAP (RESMED Airsense 11, s/u 10/2023) Equipment obtained from: [employer] (getting supplies) Mask style: Nasal (over the nose) Backup mask available: Yes Prior sleep studies: No Type of Sleep Study: Polysomnography (COMPLETED 08/28/23) HPI additional information: RIVER MCQUEEN was diagnosed to have moderate, AHI 15.9, obstructive sleep apnea-hypopnea syndrome and returned today for CPAP therapy one month with pressure change follow-up. Sleep Study - Results Type of Sleep Study: Polysomnography (COMPLETED 08/28/23) Prior sleep studies: No CPAP Compliance Data - Data Reviewed with Patient Average duration of nightly device use: 6 HRS 52 MINS Compliance rate %: 90 (12/03/23-01/01/24; days used) Current pressure setting (cmH2O): 6-9 (median 7, avg 8.4, max 8.7) Average residual AHI: 5.5 Central apnea: 4.2 Obstructive apnea: 0.8 Hypopnea: 0.4 Average large leak: 4.8 L/min Subjective Missed days of use due to: reports: mask issues (still wore it) Patient concerns: reports: mask discomfort, air blowing in eyes, condensation in mask/hose, nasal congestion, other (headache). denies: aerophagia, mask leak noise, dry mouth, nose, throat, epistaxis Observed to snore while using device: No Current pressure setting perceived as: comfortable On therapy, patient: reports: sleeping better, other (having fatigue in a fternoon). denies: drowsiness while driving Initial Friendship Sleepiness Scale score: 5 (07/13/23) Current Friendship Sleepiness Scale score: 9 Allergies and Home Medications Known drug allergies: Yes (as listed) Drug allergies reviewed: Yes Home medication list reviewed: Yes (no changes) Allergy and home medication list: Allergies adhesive tape Allergy (Verified 01/02/24 13:08) iodine Allergy (Verified 01/02/24 13:08) Review of Systems Review of systems same as previous: Yes (no changes) Physical Exam Vital signs obtained and entered by: SHILPI [place] Blood Pressure: 123/79 Cuff size: regular (left) Heart Rate: 83 O2 Saturation: 98 Height: 5 ft 2 in Weight: 135 lb 9.6 oz Body Mass Index: 24.7 BMI Classification: Normal Impression and Plan 1. Obstructive Sleep Apnea-Hypopnea Syndrome, moderate, with good treatment compliance and fair apnea control with minimal elevation of residual AHI. On C PAP therapy, she has noted better sleep but is taking nap in afternoon which is not normal. Her residual AHI is elevated at 5.5 with central index 4.2. The patients pressure will be changed to autoCPAP 5-8 cmH20 for minimal elevation of residual AHI. Patient advised to contact me if pressure change is uncomfortable so that it can be adjusted. Goals for apnea control discussed. She has been getting some condensation in the mask and I showed her on her machine how to adjust the humidity. She also has been getting headaches since using the CPAP and feels like her nose is a little congested. She is not sure if it is due to allergies or just the machine. She is getting a little bit of air leaking into her eyes from the nasal cushion that goes over her nose. She tried a nasal cushion, [employer] Dream[employer]ear, that her mother gave her and she likes it better. I will add a mask refitting to her prescription, so that she can get a better fit for the mask and cushion. I will have her follow-up in 1 to 2 months to check in and see how things are going. Patient's apnea severity and rationale for treatment to reduce apnea, improve sleep quality and reduce cardiovascular and cerebrovascular events was reviewed. * Change auto CPAP pressure to 5-8 cmH2O * Notify me if snoring with mask or feeling that the pressure is too much or too little * Call this office if any problems using CPAP * Return for follow up in 1-2 months, or sooner if concerns arise Adjust device pressure to (cmH2O): 5-8 Counseling Topics: Spare mask Prescriptions: Other (mask fitting) Follow up with Sleep Care in: 1-2 months Visit Type: In Office Time Spent with Patient (minutes): 27 Provider Statement: I spent 100% of the Face to Face Visit with the patient with greater than 50% spent counseling the patient and coordination of care.
[2024-01-04 11:15] VITALS: BP 123/79; O2SAT 98
== END 2024-01-04 10:31 | disposition home or self-care (01) ==
LOC: SC 10:30
PROVIDERS: ATTEND Nurse Practitioner Family
DX: G47.33 Obstructive sleep apnea (adult) (pediatric) (principal)
CPT/HCPCS: 99212; 99213

== ENCOUNTER 2024-02-01 10:54 | Outpatient (CLI) | payer OTHER ==
--- NOTE | 2024-02-01 11:29 | Sleep Patient Instructions ---
Sleep Center Visit Summary - Patient Visit Information Reason for Visit: 1 month follow-up - Patient Instructions Additional Instructions: You were here for follow up of CPAP therapy. You will be continued on CPAP therapy with pressure at 5-10 cmH2O. Please let us know if the pressure change is uncomfortable and we can make further adjustments of the pressure. You will be completing a titration sleep study in our sleep lab where you will be sleeping with the CPAP machine on and we will be adjusting your pressures to find your optimal pressure settings. Once we have your results back, we will call you and schedule a follow up to go over the results, you may contact us with any questions or issues as needed. - Clinic Information Contact: [facility] [address] [place] [address] [email or web address] T: [phone]
--- NOTE | 2024-02-01 11:36 | SLEEP CARE CONSULTATION ---
Information from patient questionnaire entered by Carmen Zavala. I have reviewed and concur with the information entered by Carmen Zavala. This document represents the service I personally performed and the decisions made by , Shilpi Good ARNP. History of Present Illness Service Date and Time: 02/01/2024 1054 Previous diagnosis: Moderate, Obstructive Sleep Apnea-Hypopnea Syndrome AHI: 15.9 (in 08/2023) Reason for follow up: one month (F/U) Equipment type: CPAP (RESMED Airsense 11, s/u 10/2023, NEED MACHINE) Equipment obtained from: [employer] ([employer]) Mask style: Full face Mask brand: Resmed (Airfit F30i, small cushion) Backup mask available: Yes Last cushion change: 1.5 weeks Prior sleep studies: No Type of Sleep Study: Polysomnography (COMPLETED 08/28/23) HPI additional information: RIVER MCQUEEN was diagnosed to have moderate, AHI 15.9, obstructive sleep apnea-hypopnea syndrome and returned today for CPAP therapy one month with pressure change follow-up. Sleep Study - Results Type of Sleep Study: Polysomnography (COMPLETED 08/28/23) Prior sleep studies: No CPAP Compliance Data - Data Reviewed with Patient Average duration of nightly device use: 6 HRS 3 MINS Compliance rate %: 83 (12/31/23-01/29/24; 30 days used) Current pressure setting (cmH2O): 5-8 (7.9 avg pressure) Average residual AHI: 6.2 Central apnea: 3.5 Obstructive apnea: 1.3 Hypopnea: 1.2 Average large leak: 6.4 L/min Subjective Patient concerns: reports: mask discomfort (obtained new mask), air blowing in eyes (better with new mask), mask leak noise. denies: aerophagia, condensation in mask/hose, nasal congestion, dry mouth, nose, throat, epistaxis Observed to snore while using device: No Current pressure setting perceived as: comfortable On therapy, patient: reports: other (not feeling improvement in sleep yet). denies: drowsiness while driving Initial Larimer Sleepiness Scale score: 5 (07/13/23) Current [place]imer Sleepiness Scale score: 6 (02/01/24) Allergies and Home Medications Known drug allergies: Yes (as listed) Drug allergies reviewed: Yes Home medication list reviewed: Yes (no changes) Allergy and home medication list: Allergies adhesive tape Allergy (Verified 01/30/24 14:34) iodine Allergy (Verified 01/30/24 14:34) Review of Systems Review of systems same as previous: Yes (NO CHANGE) Physical Exam Vital signs obtained and entered by: CARMEN Izaguirre MA Blood Pressure: 126/80 (RIGHT ARM) Cuff size: regular Heart Rate: 77 O2 Saturation: 98 Height: 5 ft 2 in Weight: 134 lb 3.2 oz Weight change since last visit: 1 lb loss Body Mass Index: 24.5 BMI Classification: Normal Impression and Plan 1. Obstructive Sleep Apnea-Hypopnea Syndrome, moderate, with good treatment compliance and fair apnea control with elevated residual AHI. On CPAP therapy, the patient has not yet felt like she has improved sleep or restfulness. She had a mask refitting and is now using a hybrid fullface mask, ResMed AirFit F30i. She is trying the different sizes to see which one is going to work the best for her, but so far she is liking the change to the full face mask. She continues to have a mildly elevated residual AHI at 6.2. She continues to have elevated central index and her obstructive and hypopneic index are also increased. We had better control with her previous setting of 6-9 cmH2O. The patients pressure will be changed to autoCPAP 5-10 cmH20 for elevation of residual AHI. Patient advised to contact me if pressure change is uncomfortable so that it can be adjusted. Goals for apnea control discussed. Patient's pressure setting is still not optimal to control sleep apnea. I advised patient that a titration study will be next step to determine a more optimal pressure setting. They voiced understanding and agreement. Patient's apnea severity and rationale for treatment to reduce apnea, improve sleep quality and reduce cardiovascular and cerebrovascular events was reviewed. * Change auto CPAP pressure to 5-10 cmH2O * Titration study * Notify me if snoring with mask or feeling that the pressure is too much or too little * Maintain a healthy weight * Call this office if any problems using CPAP * Return for follow up after titration study, or sooner if concerns arise Counseling Topics: Spare mask, Weight control Follow up with Sleep Care in: other (after titration study) Plan: Titration study Visit Type: In Office Time Spent with Patient (minutes): 26 Provider Statement: I spent 100% of the Face to Face Visit with the patient with greater than 50% spent counseling the patient and coordination of care.
[2024-02-01 11:56] VITALS: BP 126/80; O2SAT 98
== END 2024-02-01 10:55 | disposition home or self-care (01) ==
LOC: SC 10:54
PROVIDERS: ATTEND Nurse Practitioner Family
DX: G47.33 Obstructive sleep apnea (adult) (pediatric) (principal)
CPT/HCPCS: 99212; 99213

== ENCOUNTER 2024-04-11 13:46 | Outpatient (CLI) | payer OTHER ==
[~2024-04-11 13:46] MED LIST changes: -GADOBUTROL 10 MMOL/10 ML VIAL ONE; +GADOTERATE MEGLUMINE 7.5 MMOL/15 ML VIAL ONE
[2024-04-11] MEDS: GADOTERATE MEGLUMINE 7.5 MMOL/15 ML VIAL IVP ONE (15:20)
--- NOTE | 2024-04-15 09:14 | MRI Report ---
BREAST MRI OF BOTH BREASTS: 04/11/2024 Comparison is made to exams dated: 02/07/2024 mammogram, 12/07/2022 mammogram, 11/18/2021 mammogram, 2020 ultrasound, 11/10/2020 ultrasound, and 11/10/2020 mammogram - [facility]. PROCEDURE: MR BREAST BILATERAL WITH CAD INDICATIONS: nipple discharge TECHNIQUE: The patient was placed prone in a dedicated breast imaging coil. Precontrast axial STIR and 3D FLASH without fat saturation sequences were obtained. Both before and after bolus injection of contrast, sequential 1-minute axial 3D FLASH with fat saturation sequences for 3 time points, with subtraction images and maximum intensity projections (MIP's) generated. Delayed sagittal FLASH images with fat s aturation were also obtained. Computer-aided detection, including computer algorithm analysis of MRI image data for lesion detectio n and characterization, pharmacokinetic analysis, with further physician review for interpretation, w as performed. FINDINGS: Image quality: Diagnostic. There is minimal background parenchymal enhancement. The breasts are ex tremely dense. Right breast: No suspicious mass, non-mass enhancement, or focus. Left breast: No suspicious mass, non-mass enhancement, or focus. Miscellaneous: There are multiple oval circumscribed nonenhancing presumed complicated cysts with in trinsic T1 signal in both breasts, benign. No abnormality is noted in these regions on the subtracti on images to indicate enhancement. There are no suspicious lymph nodes by size criteria within the field of view. The partially visuali zed anterior mediastinum and upper abdomen are unremarkable. IMPRESSION: BENIGN No suspicious findings in either breast to suggest active malignancy. There are intrinsic T1 hyperintense multiple bilateral oval circumscribed presumed complicated cysts, probably containing hemorrhagic or proteinaceous contents. No signal is seen on subtraction images to indicate enhancement. These may correspond to patient's discharge or may be incidental. For workup of discharge, recommend additional diagnostic mammogram and ultrasound for evaluation. Re commend also clinical follow-up for clinically suspicious characteristics such as uniductal, spontane ous, and bloody discharge. BIRADS 2 In addition, recommend continued annual mammographic screening and supplemental MRI screening given p atient's significantly elevated lifetime risk for breast cancer. COMMENT: The imaging literature indicates that a negative contrast breast MRI examination has a high sensitivity and a moderate specificity for detecting and excluding invasive carcinomas to a detection threshold of 3-5 mm; nonetheless, appropriate clinical and mammographic follow-up are recommended. MRI is not sensitive for detecting DCIS (ductal carcinoma in situ) and may not detect large invasive neoplasms that show only minimal enhancement such as mucinous carcinoma. If there are suspicious frank cifications or clinically worrisome palpable masses, then biopsy should still be considered. Invasiv e neoplasms can be hidden by co-existent and benign enhancement caused by mastitis, hormone therapy e ffects, radiation therapy, , and recent biopsy or surgery. False positive examinations can occur in a number of circumstances, including breasts that have recently been subject to invasive pro cedures and those that contain atypical ductal hyperplasia, hormonally stimulated glandular tissue, f at necrosis, or radial scars. This exam was interpreted at Station ID: [id number]. Electronically Signed By: Rachid Rossi M.D. lc/:04/12/2024 11:55:41 ACR BI-RADS Category 2: Benign Finding(s) [id number] BI-RADS CATEGORY: (2) - 2 Mammo and MR [id number] return to screening LATERALITY: (B)
== END 2024-04-11 13:47 | disposition home or self-care (01) ==
LOC: DI 13:46
PROVIDERS: ATTEND Surgery
DX: N64.52 Nipple discharge (principal)

== ENCOUNTER 2024-04-13 08:29 | Outpatient (CLI) | payer OTHER ==
[2024-04-13 09:06] LABS: BASOPHILS # (AUTO) 0.1 10^3/uL (0.0-0.1); EOSINOPHILS # (AUTO) 0.1 10^3/uL (0.0-0.7); EOSINOPHILS % (AUTO) 2.5 %; HCT - HEMATOCRIT 38.6 % (37.0-47.0); HGB - HEMOGLOBIN 12.3 g/dL (12.0-16.0); LYMPHOCYTES # (AUTO) 1.8 10^3/uL (1.5-3.5); LYMPHOCYTES % (AUTO) 37.9 %; MEAN CORPUSCULAR HEMOGLOBIN 30.5 pg (27.0-31.0); MEAN CORPUSCULAR HGB CONC 31.9 g/dL (32.0-36.0); MEAN CORPUSCULAR VOLUME 95.8 fL (81.0-99.0); MEAN PLATELET VOLUME 9.1 fL (7.9-10.8); MONOCYTES # (AUTO) 0.4 10^3/uL (0.0-1.0); MONOCYTES % (AUTO) 7.6 %; NEUTROPHILS # (AUTO) 2.5 10^3/uL (1.5-6.6); NEUTROPHILS % (AUTO) 50.6 %; PLT - PLATELET COUNT 271 10^3/uL (130-450); RED BLOOD COUNT 4.03 10^6/uL (4.20-5.40); RED CELL DISTRIBUTION WIDTH 12.3 % (12.0-15.0); WHITE BLOOD COUNT 4.9 x10^3/uL (4.8-10.8)
[2024-04-13 09:20] LABS: ALBUMIN 4.3 g/dL (3.2-5.5); ALBUMIN/GLOBULIN RATIO 1.7 (1.0-2.2); ALKALINE PHOSPHATASE 67 IU/L (42-121); ALT ALANINE AMINOTRANSFERASE 16 IU/L (10-60); AST ASPARTATE AMINOTRANSFERASE 18 IU/L (10-42); BILIRUBIN,TOTAL 0.5 mg/dL (0.2-1.0); BUN - BLOOD UREA NITROGEN 13 mg/dL (6-20); CALCIUM 9.9 mg/dL (8.5-10.3); CARBON DIOXIDE - CO2 31 mmol/L (21-32); CHLORIDE 105 mmol/L (101-111); CHOL/HDL RATIO 3.1 (<4.4); CHOLESTEROL 266 mg/dL; CREATININE 0.7 mg/dL (0.6-1.3); GFR - MDRD 88 (>89); GLUCOSE 95 mg/dL (74-104); HDL CHOLESTEROL 87 mg/dL; LDL CHOLESTEROL,CALCULATED 163 mg/dL; LDL/HDL RATIO 1.9 (<4.4); MAGNESIUM 1.7 mg/dL (1.7-2.3); PHOSPHORUS 3.7 mg/dL (2.5-5.0); POTASSIUM 4.2 mmol/L (3.5-4.5); SODIUM 139 mmol/L (135-145); TOTAL PROTEIN 6.9 g/dL (6.4-8.9); TRIGLYCERIDES 82 mg/dL (48-352); VLDL CHOLESTEROL 16 mg/dL
== END 2024-04-13 08:30 | disposition home or self-care (01) ==
LOC: LAB 08:29
PROVIDERS: ATTEND Physician Assistant Medical
DX: E78.5 Hyperlipidemia, unspecified (principal); R55 Syncope and collapse
CPT/HCPCS: 36415; 80053; 80061; 83721; 83735; 84100; 84443; 84702; 85025